=== PATIENT | female | born 1970 | race Caucasian/White ===

== ENCOUNTER 2016-07-18 09:51 | Emergency (ER) | payer MEDICAID ==
[2016-07-18 10:01] VITALS: RESP 14
--- NOTE | 2016-07-18 11:31 | EDPHY ---
H & P Stated Complaint: resp infection for 4 wks Time Seen by Provider: 07/18/16 11:00 HPI/ROS: CHIEF COMPLAINT: URI symptoms HISTORY OF PRESENT ILLNESS: 45-year-old female presents emergency department complaining of nasal congestion, head pressure, cough, sore throat, ear pressure x3 weeks. Patient reports a productive cough. She reports subjective fevers and chills. Patient denies neck pain. She is homeless and is surrounded by multiple sick contacts at the homeless skilled nursing. She does smoke tobacco. Patient denies chest pain or shortness of breath. No nausea, vomiting or diarrhea, no abdominal pain. REVIEW OF SYSTEMS: A comprehensive 10 point review of systems is otherwise negative aside from elements mentioned in the history of present illness. Source: Patient Exam Limitations: No limitations - Personal History LMP (Females 10-55): 15-21 Days Ago Current Tetanus/Diphtheria Vaccine: Unsure Current Tetanus Diphtheria and Acellular Pertussis (TDAP): Unsure - Medical/Surgical History Hx Asthma: No Hx Chronic Respiratory Disease: No Hx Diabetes: No Hx Cardiac Disease: No Hx Renal Disease: No Hx Cirrhosis: No Hx Alcoholism: No Hx HIV/AIDS: No Hx Splenectomy or Spleen Trauma: No Other PMH: Kidney stones. Cholecystectomy. - Social History Smoking Status: Current every day smoker Alcohol Use: None Drug Use: None - Physical Exam Exam: General: Alert, nontoxic. ENT: Tympanic membranes clear, external auditory canal, external ear and surrounding soft tissue including over the mastoid unremarkable. Nasopharynx is injected, there is yellow rhinorrhea. Frontal and maxillary sinus facial tenderness to palpation. Oropharynx with erythema. There is no exudate. No tonsillar hypertrophy. No asymmetry. The uvula is midline. No elevation of tongue. There is no hoarseness. No drooling, patient has good control of their oral secretions. No trismus. No stridor. Cardiac: Regular rate and rhythm. Respiratory: Lungs clear to auscultation bilaterally. Neurological: no meningismus. Skin: No rashes. Constitutional: Initial Vital Signs Temperature (C) 36.8 C 07/18/16 09:59 Heart Rate 86 07/18/16 09:59 Respiratory Rate 14 07/18/16 09:59 Blood Pressure 132/94 H 07/18/16 09:59 O2 Sat (%) 96 05/26/17 09:59 O2 Delivery Mode Room Air Allergies/Adverse Reactions: No Known Allergies Allergy (Unverified 10/29/15 19:05) Home Medications: Medication Instructions Recorded Cephalexin [Keflex (*)] 500 mg PO QID 10 Days 10/29/15 Ondansetron Odt [Zofran Odt 4 mg 4 mg PO Q4PRN PRN #7 tab 10/29/15 (*)] Tamsulosin HCl [Flomax] 0.4 mg PO DAILY #4 cap 10/29/15 oxyCODONE/APAP 5/325 [Percocet 1 - 2 tab PO Q4PRN PRN #11 tab 10/29/15 5/325 (*)] Amoxicillin/Clavulanate Pot 875 mg PO BID #20 tab 07/18/16 [Augmentin 875Mg] Fluticasone Nasal [Flonase Nasal 1 sprays NASAL DAILY #1 mdi 07/18/16 [place] (RX)] Guaifenesin/Codeine Phosphate 10 ml PO HS PRN #100 ml 07/18/16 [Guaifenesin-Codeine Liquid] Departure - Departure Disposition: Home, Routine, Self-Care Clinical Impression: Acute sinusitis Qualifiers: Sinusitis location: maxillary Recurrence: non-recurrent Qualified Code(s): J01.00 - Acute maxillary sinusitis, unspecified Condition: Good Instructions: Sinusitis (ED) Additional Instructions: Take antibiotics as prescribed. Use 2 puffs of your albuterol inhaler every 4-6 hours as needed for cough. Use 1 spray of Flonase in each nostril daily for 7 days. Use cough syrup as needed at night. Take over the counter Tylenol and ibuprofen for fevers, body aches. Rest, drink plenty of fluids. Use a saline nasal rinse, humidifier at night, hot steam showers. Return to the ED for difficulty breathing, chest pain, other concerns. Referrals: [facility] [Other] - As per Instructions Prescriptions: Amoxicillin/Clavulanate Pot [Augmentin 875Mg] 875 mg PO BID #20 tab Fluticasone Nasal [Flonase Nasal [place] (RX)] 1 sprays NASAL DAILY #1 mdi Guaifenesin/Codeine Phosphate [Guaifenesin-Codeine Liquid] 10 ml PO HS PRN #100 ml PRN Reason: Cough, Moderate
[2016-07-18 11:49] VITALS: BP 128/90; PULSE 84; TEMP 98.1; O2SAT 97
== END 2016-07-18 11:48 | disposition home or self-care (01) ==
DX: J01.00 Acute maxillary sinusitis, unspecified (principal); F17.200 Nicotine dependence, unspecified, uncomplicated

== ENCOUNTER 2016-08-10 12:27 | Emergency (ER) | payer MEDICAID ==
[2016-08-10] MEDS ORDERED: NS 1,000 ML IV ONE (12:48)
[2016-08-10] MEDS ORDERED: ONDANSETRON 4 MG/2 ML VIAL IVP ONE (12:48)
--- NOTE | 2016-08-10 13:02 | EDPHY ---
H & P Time Seen by Provider: 08/10/16 12:48 HPI/ROS: CHIEF COMPLAINT: Dyspnea HISTORY OF PRESENT ILLNESS: This patient is a 45 year old female who presents to the Emergency Department complaining of worsening dyspnea over the past week. She reports worsening productive cough and intermittent subjective fever over the past five weeks. She denies headache, chest pain, urinary complaints, or additional concerns. She was seen in the ED when her complaints first began and was started on amoxicillin for sinusitis; she had an adverse reaction to the amoxicillin and has been unable to obtain an alternate antibiotic since that time. She was prescribed doxycycline at [facility] last week but is unable to worm picker the medication because the pharmacy is closed today. She has a history of asthma and admits to regular smoking. REVIEW OF SYSTEMS: Constitutional: +intermittent fever, no chills Eyes: No visual changes ENT: No sore throat Respiratory: +productive cough, +shortness of breath Cardiac: No chest pain Gastrointestinal: No nausea, no vomiting, no abdominal pain Genitourinary: No hematuria, no dysuria Musculoskeletal: No leg pain or swelling Skin: No rash Neurological: No headache, no numbness, no weakness Psychiatric: No depression Past Medical/Surgical History: Asthma Social History: Daily smoker. Lives in [place] right now. Followed by [facility]. Smoking Status: Current every day smoker Physical Exam: General Appearance: Alert, no distress Eyes: Pupils equal and round, no conjunctival pallor or injection ENT, Mouth: Mucous membranes moist Neck: Normal inspection Respiratory: Lungs are clear to auscultation Cardiovascular: Regular rate and rhythm Gastrointestinal: Abdomen is soft and non- tender Neurological: A&O, nonfocal, normal gait Skin: Warm and dry, no rash Extremities: Nontender, no pedal edema Psychiatric: Mood and affect normal Constitutional: Initial Vital Signs Temperature (C) 36.9 C 08/10/16 12:36 Heart Rate 90 08/10/16 12:36 Respiratory Rate 20 08/10/16 12:36 Blood Pressure 131/99 H 08/10/16 12:36 O2 Sat (%) 96 08/10/16 12:36 O2 Delivery Mode Room Air Allergies/Adverse Reactions: amoxicillin Allergy (Verified 08/10/16 12:35) Home Medications: Medication Instructions Recorded Fluticasone Nasal [Flonase Nasal 1 sprays NASAL DAILY #1 mdi 07/18/16 [place] (RX)] Guaifenesin/Codeine Phosphate 10 ml PO HS PRN #100 ml 07/18/16 [Guaifenesin-Codeine Liquid] Ipratropium [Atrovent Hfa (*)] 2 puffs IH Q8 PRN #1 mdi 08/10/16 predniSONE 1 tab PO DAILY #15 tab 08/10/16 Medical Decision Making ED Course/Re-evaluation: 45-year-old female with five week history of ongoing cough, congestion, and dyspnea presents because complaints are not improving and she has been unable to obtain doxycycline prescribed by her PCP. On exam, she is actively coughing but lungs are clear to auscultation. She is afebrile at time of presentation with normal O2 saturation. She has a follow-up plan with her PCP but presents today for treatment prior to obtaining antibiotics tomorrow. 60mg PO prednisone and 3ml IH DuoNeb administered. Initial dose of 100mg PO doxycycline administered as discussed. The patient will be provided with take-home doxycycline dose for tomorrow and an inhaler to use as needed at home. She will be discharged home in good condition with customary return precautions and at-home care instructions as discussed with her PCP. Differential Diagnosis: Differential diagnosis for the patient's dyspnea and cough includes but is not limited to: bronchitis, pneumonia, URI, asthma, or PE. - Data Points Medications Given: Discontinued Medications Sodium Chloride (Ns) 1,000 mls @ 0 mls/hr IV ONCE ONE; Wide Open PRN Reason: Protocol Stop: 08/10/16 12:49 Last Admin: 08/10/16 13:08 Dose: 1,000 mls Ondansetron HCl (Zofran) 4 mg IVP EDNOW ONE Stop: 08/10/16 12:49 Last Admin: 08/10/16 13:08 Dose: 4 mg Departure - Departure Disposition: Home, Routine, Self-Care Clinical Impression: Bronchitis Condition: Good Instructions: Acute Bronchitis (ED) Additional Instructions: 1. Use your inhaler as directed as needed for shortness of breath. 2. grocery supervisor your doxycycline prescription from the pharmacy tomorrow and take the full course of this as prescribed. 3. Return to the Emergency Department for worsening shortness of breath, chest pain, high fever, or for other serious concerns. Referrals: [facility] [Other] - As per Instructions Prescriptions: Ipratropium [Atrovent Hfa (*)] 2 puffs IH Q8 PRN #1 mdi PRN Reason: cough predniSONE 1 tab PO DAILY #15 tab Report Scribed for: Eloise Mendoza Report Scribed by: Sruthi Lubin Date of Report: 08/10/16 Time of Report: 13:02 Physician Review and Approval Statement: 08/10/16 13:02 Portions of this note were transcribed by a medical records administrator. I personally performed a history, physical exam, medical decision making, and confirmed accuracy of information the transcribed note.
[2016-08-10 14:01] VITALS: BP 118/85; PULSE 72; RESP 18; TEMP 98.2; O2SAT 93
[2016-08-10] MEDS ORDERED: predniSONE 20 MG TAB PO ONE (14:22)
[2016-08-10] MEDS ORDERED: IPRATROPIUM/ALBUTEROL 3 ML DEYVIAL IH ONE (14:22)
[2016-08-10] MEDS ORDERED: DOXYCYCLINE HYCLATE 100 MG CAP/TAB PO ONE (14:22)
[2016-08-10] MEDS ORDERED: DOXYCYCLINE 100 MG PREPACK#2 BTL TAKEHOME ONE (14:24)
[2016-08-10] MEDS ORDERED: predniSONE 20 MG TAB ONE (14:34)
== END 2016-08-10 15:21 | disposition home or self-care (01) ==
DX: J20.9 Acute bronchitis, unspecified (principal); J45.909 Unspecified asthma, uncomplicated; F17.200 Nicotine dependence, unspecified, uncomplicated
CPT/HCPCS: 96374; J2405